=== PATIENT | male | born 1960 | race Caucasian/White ===

== ENCOUNTER 2019-08-09 21:11 | Emergency (ER) | payer BC ==
[2019-08-09] MEDS ORDERED: Bacitracin Oint 1 GM U/D Packet TOP ONE (21:33)
--- NOTE | 2019-08-09 22:03 | EDM.PDOC ---
ED HPI GENERAL MEDICAL PROBLEM - General Chief Complaint: Laceration Stated Complaint: CUT TO BOTTOM OF R FOOT Time Seen by Provider: 08/09/19 21:35 Source of Information: Reports: Patient, Family History Limitations: Reports: No Limitations - History of Present Illness INITIAL COMMENTS - FREE TEXT/NARRATIVE: 58-year-old male with a cut on the bottom of his right foot. Occurred an hour and a half ago when he struck his foot on the edge of his dock. No other injury. His tetanus is current. Onset: Sudden Duration: Hour(s): (Within the last 2 hours) Location: Reports: Lower Extremity, Right (Right foot) Associated Symptoms: Reports: No Other Symptoms Treatments [facility]: Reports: Dressing(s) - Related Data Allergies Allergy/AdvReac Type Severity Reaction Status Date / Time No Known Allergies Allergy Verified 08/09/19 21:30 Home Meds: Home Meds . [Unable to Verify Home Med List] 08/09/19 [History] Past Medical History Cardiovascular History: Reports: High Cholesterol, Hypertension Musculoskeletal History: Reports: Fracture Endocrine/Metabolic History: Reports: Hypothyroidism - Infectious Disease History Infectious Disease History: Reports: Chicken Pox, Measles, Mumps - Past Surgical History Endocrine Surgical History: Reports: Thyroidectomy Social & Family History - Tobacco Use Smoking Status *Q: Light Tobacco Smoker Years of Tobacco use: 20 Packs/Tins Daily: 0 - Caffeine Use Caffeine Use: Reports: Coffee - Alcohol Use Days Per Week of Alcohol Use: 7 Number of Drinks Per Day: 2 Total Drinks Per Week: 14 - Recreational Drug Use Recreational Drug Use: No ED ROS GENERAL - Review of Systems Review Of Systems: See Below Constitutional: Denies: Fever, Chills Respiratory: Denies: Shortness of Breath Cardiovascular: Denies: Chest Pain GI/Abdominal: Denies: Nausea, Vomiting Neurological: Reports: No Symptoms ED EXAM, SKIN/RASH Exam: See Below Exam Limited By: No Limitations General Appearance: Alert, No Apparent Distress Respiratory/Chest: No Respiratory Distress Neurological: Alert, Oriented Skin: Warm, Dry, Other (Skin is normal except for on the underside of the right foot between the large and second toe there is a curved 1.5 cm laceration in the subcutaneous tissue.) Course - Vital Signs Last Recorded V/S: Last Vital Signs Temp 98.6 F 08/09/19 21:44 Pulse 91 08/09/19 21:44 Resp 16 08/09/19 21:44 BP 134/87 08/09/19 21:44 Pulse Ox 96 08/09/19 21:44 - Orders/Labs/Meds Meds: Medications Discontinued Medications Generic Name Dose Route Start Last Admin Trade Name Juanita PRN Reason Stop Dose Admin Bacitracin 1 dose 08/09/19 21:33 08/09/19 21:41 Bacitracin Oint 1 Gm TOP 08/09/19 21:34 1 dose ONETIME ONE Administration Lidocaine HCl 5 ml 08/09/19 21:33 08/09/19 21:42 Xylocaine-Mpf 1% INJECT 08/09/19 21:34 5 ml ONETIME ONE Administration - Re-Assessments/Exams Free Text/Narrative Re-Assessment/Exam: 08/09/19 22:02 The wound is anesthetized with 1% lidocaine, cleansed thoroughly with saline and three 4-0 Ethilon sutures were used to close the wound. Topical bacitracin and a dressing were applied, he can remove the sutures in 8 days. Keep covered and clean while healing and return sooner if concerns of infection. Departure - Departure Time of Disposition: 22:09 Disposition: Home, Self-Care 01 Clinical Impression: Foot laceration Qualifiers: Encounter type: initial encounter Laterality: right Qualified Code(s): S91.311A - Laceration without foreign body, right foot, initial encounter - Discharge Information Instructions: Sutured Wound Care, [id number] Referrals: PCP,None [Primary Care Provider] - Forms: ED Department Discharge Care Plan Goals: Keep wound covered and clean while healing. Sutures can be removed in 8 days, August 16. Recheck sooner if concerns of infection or not healing satisfactorily. Avoid stoner water until wound is dry. Sepsis Event Note (ED) - Evaluation Sepsis Screening Result: No Definite Risk - Focused Exam Vital Signs: Vital Signs Temp Pulse Resp BP Pulse Ox 08/09/19 21:44 98.6 F 91 16 134/87 96 08/09/19 21:27 98.6 F 91 16 134/87 96
== END 2019-08-09 22:10 | disposition home or self-care (01) ==
LOC: JP.ED 21:11
DX: S91.311A Laceration without foreign body, right foot, initial encounter (principal); I10 Essential (primary) hypertension; F17.210 Nicotine dependence, cigarettes, uncomplicated; W22.8XXA Striking against or struck by other objects, initial encounter
CPT/HCPCS: 12001; 99282; J2001